=== PATIENT | male | born 1965 | race Caucasian/White ===

== ENCOUNTER 2018-02-12 13:43 | Emergency (ER) | payer BC ==
[2018-02-12 13:49] VITALS: BP 115/80; PULSE 100; TEMP 98.7; BMI 25.2
--- NOTE | 2018-02-12 14:13 | PDOC ---
Attending Attestation - HPI HPI: 02/12/18 15:04 The patient is a 52 year old male, with a significant PMH HLD, HTN, T2DM, who presents to the emergency department for evaluation of a syncopal fall that occurred today. The patient states he felt anxious and lightheaded at work when he fell down a flight of stairs. The patient does not recall passing out but remembers waking up after the fall and being able to ambulate. The patient complains of pain to the right side of his rib, neck tenderness with movement and mild right thumb pain. The patient denies chest pain, shortness of breath, headache and dizziness. Denies fever, chills, nausea, vomit, diarrhea and constipation. Denies dysuria, frequency, urgency and hematuria. Allergies: NKDA Past surgical history: Appendectomy Social history: None reported PCP: Cristian Mansfield - Physicial Exam PE: 02/12/18 15:04 GENERAL: Awake, alert, and fully oriented, in no acute distress HEAD: No signs of trauma EYES:+ 1 cm laceration to the left eyebrow. Sclera anicteric, conjunctiva clear ENT: Auricles normal inspection, hearing grossly normal, nares patent, oropharynx clear without exudates. Moist mucosa NECK: Normal ROM, supple, no lymphadenopathy, JVD, or masses LUNGS:+Mild tenderness with no ecchymosis to the right anterior chest wall. Breath sounds equal, clear to auscultation bilaterally. No wheezes, and no crackles HEART: Regular rate and rhythm, normal S1 and S2, no murmurs, rubs or gallops ABDOMEN:+RUQ tenderness to palpation. No guarding, no rebound. No masses EXTREMITIES: Normal range of motion, no edema. No clubbing or cyanosis. No cords, erythema, or tenderness NEUROLOGICAL: Cranial nerves II through XII grossly intact. Normal speech, normal gait SKIN: Warm, Dry, normal turgor, no rashes or lesions noted. <Nathan Carrington - Last Filed: 02/12/18 15:43> - Medical Decision Making 02/14/18 11:19 PT presents to the ED after fall down 11 stairs with R lower chest/upper abdomen pain and tenderness and laceration over eyebrow. Will check CT head to rule out intracranial injury. C spine cleared by nexus criteria. Given abdominal tenderness and mechanism of injury, will check CT chest abdomen pelvis to rule out internal injury. <Leticia Sarah - Last Filed: 02/14/18 11:20>
--- NOTE | 2018-02-12 14:35 | PDOC ---
History of Present Illness - General Chief Complaint: Injury Stated Complaint: LEFT EYE INJURY JOB Time Seen by Provider: 02/12/18 14:04 - History of Present Illness Initial Comments: The patient is a 52M w/ a PMH of HTN, T2DM, and HLD who presents s/p syncopal fall down 11 stairs. The patient reports that he was at work, standing at the top of a flight of stairs when he began to feel lightheaded. He reports that he does not remember falling and woke shortly after at the bottom of the stairs. He states that he was immediately able to ambulate. He states that he has a history of experiencing episodes of lightheadedness approximately every 9mo especially during times of anxiety. He endorses feeling anxious at work today just prior to his fall. He denies a history of falls or syncope in the past. On presentation the patient reports pain over his L eyebrow at the site of a laceration and small hematoma. He also reports an abrasion on the right thenar palm and R anterior mid-garcia. Otherwise he denies any complaints. Has been ambulating and drove himself to the ED. He denies blood thinner usage. He denies fever/chills, blurry vision, chest pain, SOB, weakness, or changes in sensation. 02/12/18 15:21 Past History - Past Medical History Allergies/Adverse Reactions: Allergies Allergy/AdvReac Type Severity Reaction Status Date / Time No Known Allergies Allergy Verified 02/12/18 13:49 Home Medications: Ambulatory Orders Atorvastatin Calcium 1 tab PO DAILY 02/12/18 Levothyroxine [Synthroid -] 1 tab PO DAILY 02/12/18 Lisinopril [Zestril] 1 tab PO DAILY 02/12/18 Pantoprazole Sodium [Protonix -] 1 tab PO Q2D 02/12/18 Sitagliptin Phos/Metformin HCl [Janumet 50-1,000 mg Tablet] 1 tab PO BID Diabetes: Yes HTN: Yes Hypercholesterolemia: Yes Thyroid Disease: Yes (hypothyroid) - Surgical History Appendectomy: Yes (lap appy) - Suicide/Smoking/Psychosocial Hx Smoking History: Never smoked Have you smoked in the past 12 months: Yes Cigars Per Day: 3 Information on smoking cessation initiated: No Hx Alcohol Use: No Drug/Substance Use Hx: No Review of Systems - Review of Systems Able to Perform ROS?: Yes Comments:: GENERAL/CONSTITUTIONAL: No fever or chills. No weakness HEAD, EYES, EARS, NOSE AND THROAT: No change in vision. No ear pain or discharge. No sore throat CARDIOVASCULAR: No chest pain or shortness of breath RESPIRATORY: No cough, wheezing, or hemoptysis GASTROINTESTINAL: No nausea, vomiting, diarrhea or constipation GENITOURINARY: No dysuria, frequency, or change in urination MUSCULOSKELETAL: per HPI SKIN: +R hand abrasion, +R garcia abrasion, +L eyebrow swelling and laceration NEUROLOGIC: +LOC; No current lightheadedness or dizziness; Pain at site of laceration/hematoma; No change in strength/sensation HEMATOLOGIC/LYMPHATIC: No anemia, easy bleeding, or history of blood clots. No blood thinners ALLERGIC/IMMUNOLOGIC: No hives or skin allergy 02/12/18 14:35 Is the patient limited Syriac proficient: No *Physical Exam - Vital Signs Last Vital Signs Temp Pulse Resp BP Pulse Ox 98.7 F 100 H 16 115/80 100 02/12/18 13:47 02/12/18 13:47 02/12/18 13:47 02/12/18 13:47 02/12/18 13:47 - Physical Exam Comments: GENERAL: Awake, alert, oriented x3, no acute distress SKIN: Warm and well perfused. Small superficial abrasion over R thenar eminence ; 1.5cm abrasion over R mid-garcia w/ no active bleeding; Linear 2cm laceration over L lateral eyebrow with surrounding hematoma w/o active bleeding HEAD: Linear 2cm laceration over L lateral eyebrow with surrounding hematoma w/ o active bleeding. Facial bones without deformities. No TTP other than over hematoma/laceration EYES: PERRL. No scleral icterus or conjunctival injection. Extraocular muscles intact. EARS: Normal appearing pinnae. NOSE: No discharge, tenderness. MOUTH: Moist mucus membranes without blood. Posterior pharynx without erythema or exudate. NECK: Trachea midline. No discolorations or edema. No mid-line c-spine TTP CV: Regular rate and rhythm, Normal s1 and s2. No murmurs appreciated PV: Radial pulses 2+ bilaterally and symmetric. Dorsalis pedis pulses 2+ bilaterally and symmetric. 2+ capillary refill. No extremity edema. CHEST: No abrasions or ecchymosis. Chest symmetric with respirations. No chest wall tenderness. No crepitus. No step offs. Lungs are clear to auscultation bilaterally. No rales, rhonchi, wheezing or stridor. ABDOMEN: Point TTP in RUQ just inferior to costal margin; No ecchymosis or abrasions. Soft, nondistended. Bowel tones normoactive. BACK: No abrasions, skin openings, or ecchymosis. Spine without bony tenderness , no step offs. PELVIC: Pelvis stable, nontender to lateral compression and palpation of symphysis pubis. MSK: Small superficial abrasion over R thenar eminence; 1.5cm abrasion over R mid-garcia w/ no active bleeding; Tolerates full range of motion of extremities without tenderness. NEURO: Alert and oriented to person, place, and time. GCS 15. CN II-XII intact. Sensation grossly intact. Strength 5/5 in bilateral UE and LE. 02/12/18 14:28 Procedures - Laceration/Wound Repair Left Face Wound Length: to 2.5 cm Wound Explored: clean Wound's Depth, Shape: superficial Irrigated w/ Saline: Yes Anesthesia: 2% Lidocaine Wound Debrided: minimal Wound Repaired With: Sutures Suture Size/Type: 5:0, nylon Number of Sutures: 7 Layer Closure: No Progress: Indication: Laceration to L eyebrow Procedure: Laceration Repair Performed by: Teja White MD Supervising Physician: Dr. Leticia Sarah Consent: Risks, benefits and alternatives were discussed and verbal consent obtained Laceration length: 3 cm Foreign bodies: no foreign bodies Anesthesia: local infiltration w/ Lidocaine 2% w/o epi Preparation: Patient was prepped and draped in the usual sterile fashion. Irrigation solution: saline Irrigation method: jet lavage and syringe Debridement: none Degree of undermining: none Skin closure: 4-0 Nylon Number of sutures: 7 Technique: simple Approximation: close Dressing: Xeroform and 2x2 gauze Patient tolerance: Patient tolerated the procedure well with no immediate complications 02/12/18 17:49 ED Treatment Course - LABORATORY CBC & Chemistry Diagram: 02/12/18 14:21 02/12/18 14:21 - RADIOLOGY Radiology Studies Ordered: Category Date Time Status ABDOMEN & PELVIS CT WITH CONTR [CT] Stat CT Scan 02/12/18 14:23 Ordered ABDOMEN & PELVIS CT WITH CONTR [CT] Stat CT Scan 02/12/18 14:[address] WITH CONTRAST [CT] Stat CT Scan 02/12/18 14:[address] WITHOUT CONTRAST [CT] Stat CT Scan 02/12/18 14:15 Ordered CHEST X-RAY PORTABLE* [RAD] Stat Radiology 02/12/18 14:15 Ordered Medical Decision Making - Medical Decision Making The patient is a 52M w/ a PMH of HTN, T2DM, and HLD who presents s/p syncopal fall down 11 stairs. The patient reports that he was at work, standing at the top of a flight of stairs when he began to feel lightheaded. Ddx: Vasovagal, possible ACS, not likely but considered infection, electrolyte abnormality; patient not hypoglycemic ED Course CMP, CBC, Trop I, TS, PT/PTT/INR ECG CXR, CT Head w/o, CT CAP w/ contrast ECG with rate of 98, regular rhythm, no ST segment changes, boarderline QTc at 444. No previous study to compare. Initial Trop neg Lytes wnl No leukocytosis No Transaminitis 02/12/18 15:26 CT Head w/o evidence of acute bleed or fracture. Scan significant for prominent retrocerebellar CSF. Patient is without focal neurological deficit, ambulating w /o difficulty, no ataxia Laceration to L eyebrow, refer to the Procedure Note for full details. R mid-garcia abrasion cleaned and dressed with xeroform & 2x2 gauze. Reviewed wound care instructions with patient who verbalized understanding 02/12/18 17:55 Contacted [facility] for CT CAP read. Image was sent at 1641, however they state that they just now received the study. 02/12/18 18:15 CT CAP w/o acute rasta, intrathoracic, or intraabdominal pathology. 1.1cm renal calculus noted, non-obstructing. Dispo: Home w/ PCP f/u. 02/12/18 19:24 *DC/Admit/Observation/Transfer Diagnosis at time of Disposition: Syncope Qualifiers: Syncope type: unspecified Qualified Code(s): R55 - Syncope and collapse Fall down stairs Qualifiers: Encounter type: initial encounter Qualified Code(s): W10.8XXA - Fall (on) (from ) other stairs and steps, initial encounter - Discharge Dispostion Disposition: HOME Condition at time of disposition: Stable Decision to Admit order: No - Referrals Referrals: Cristian Mansfield MD [Primary Care Provider] - - Patient Instructions Printed Discharge Instructions: DI for Syncope in Adults (Fainting), DI for Laceration Repair -- Simple Additional Instructions: You were seen today in the Emergency Room for evaluation of syncope and fall down 11 stairs. You were evaluated and found to not have any acute fracture. You were also provided with copies of your imaging study reports. Please take these with you to your next primary care appointment. For your laceration, wash the area with soap and water every day. You may dress the wound with Bacitracin/Neosporin. For pain, recommend Tylenol and Ibuprofen as directed. Follow up with your primary care provider within the next 1-3 days You will need to have the sutures removed in 5-7 days Return to the Emergency Room if you develop fevers, nausea/vomiting, worsening abdominal pain, worsening symptoms, or any new concerning symptoms. Also return if you have worsening pain, redness, or drainage from your laceration. - Post Discharge Activity
[2018-02-12 14:46] LABS: HEMOGLOBIN 15.8 GM/dL (11.7-16.9); MCH 32.1 pg (25.7-33.7); MCHC 34.3 g/dl (32.0-35.9); MEAN CELL VOLUME 93.5 fl (80-96); MEAN PLT VOLUME 8.7 fl (7.5-11.1); PLATELET COUNT 255 K/MM3 (134-434); RBC 4.91 M/mm3 (4.00-5.60); RDW 12.9 % (11.9-15.9); WHITE BLOOD COUNT 11.2 K/mm3 (4.0-10.0)
[2018-02-12 15:11] LABS: ALBUMIN 3.9 g/dl (3.4-5.0); ANION GAP 10 MMOL/L (8-16); BILIRUBIN,TOTAL 0.7 mg/dL (0.2-1.0); BLOOD UREA NITROGEN 15 mg/dL (7-18); CALCIUM 8.9 mg/dL (8.5-10.1); CHLORIDE 111 mmol/L (98-107); CO2 24 mmol/L (21-32); CREATININE 0.9 mg/dL (0.7-1.3); GLUCOSE,RANDOM 156 mg/dL (74-106); SGOT/AST 55 U/L (15-37); SGPT/ALT 50 U/L (12-78); SODIUM 145 mmol/L (136-145); TOT PROT 7.2 g/dl (6.4-8.2)
[2018-02-12 15:12] LABS: ALK PHOS 55 U/L (45-117)
[2018-02-12] MEDS ORDERED: LIDOCAINE HCL 2% (50ML VIAL) SQ ONE (15:43)
[2018-02-12 16:19] LABS: INR 1.05 (0.83-1.09); PROTHROMBIN TIME (PATIENT) 11.9 SEC (9.7-13.0)
[2018-02-12 16:22] LABS: ACTIVATED PTT 28.7 SECONDS (25.2-36.5)
--- NOTE | 2018-02-12 19:11 | PDOC ---
*Physical Exam - Vital Signs Last Vital Signs Temp Pulse Resp BP Pulse Ox 98.7 F 100 H 16 115/80 100 02/12/18 13:47 02/12/18 13:47 02/12/18 13:47 02/12/18 13:47 02/12/18 13:47 ED Treatment Course - LABORATORY CBC & Chemistry Diagram: 02/12/18 14:21 02/12/18 14:21 - ADDITIONAL ORDERS Additional order review: Laboratory Results 02/12/18 02/12/18 02/12/18 16:00 16:00 14:21 PT with INR 11.90 INR 1.05 PTT (Actin FS) 28.7 Sodium Potassium Chloride Carbon Dioxide Anion Gap BUN Creatinine Creat Clearance w eGFR Random Glucose Calcium Total Bilirubin AST ALT Alkaline Phosphatase Troponin I < 0.02 Total Protein Albumin Blood Type O POSITIVE Antibody Screen Negative 02/12/18 14:21 PT with INR INR PTT (Actin FS) Sodium 145 Potassium 4.0 Chloride 111 H Carbon Dioxide 24 Anion Gap 10 BUN 15 Creatinine 0.9 Creat Clearance w eGFR > 60 Random Glucose 156 H Calcium 8.9 Total Bilirubin 0.7 AST 55 H ALT 50 Alkaline Phosphatase 55 Troponin I Total Protein 7.2 Albumin 3.9 Blood Type Antibody Screen 02/12/18 14:21 RBC 4.91 MCV 93.5 MCHC 34.3 RDW 12.9 MPV 8.7 - Medications Given in the ED: ED Medications Discontinued Medications Generic Name Dose Route Start Last Admin Trade Name Freq PRN Reason Stop Dose Admin Lidocaine HCl 10 mg 02/12/18 15:43 02/12/18 17:50 Xylocaine 2% SQ 02/12/18 15:44 10 mg ONCE ONE Administration Medical Decision Making - Medical Decision Making 02/12/18 19:10 Pt signed out to me by Dr. White Awaiting CT scan results 02/12/18 19:[address] Dr[address] White received ct results and d/cd the pt *DC/Admit/Observation/Transfer Diagnosis at time of Disposition: Syncope Qualifiers: Syncope type: unspecified Qualified Code(s): R55 - Syncope and collapse Fall down stairs Qualifiers: Encounter type: initial encounter Qualified Code(s): W10.8XXA - Fall (on) (from ) other stairs and steps, initial encounter - Discharge Dispostion Disposition: HOME Condition at time of disposition: Stable - Referrals Referrals: Cristian Mansfield MD [Primary Care Provider] - - Patient Instructions Printed Discharge Instructions: DI for Syncope in Adults (Fainting), DI for Laceration Repair -- Simple Additional Instructions: You were seen today in the Emergency Room for evaluation of syncope and fall down 11 stairs. You were evaluated and found to not have any acute fracture. You were also provided with copies of your imaging study reports. Please take these with you to your next primary care appointment. For your laceration, wash the area with soap and water every day. You may dress the wound with Bacitracin/Neosporin. For pain, recommend Tylenol and Ibuprofen as directed. Follow up with your primary care provider within the next 1-3 days You will need to have the sutures removed in 5-7 days Return to the Emergency Room if you develop fevers, nausea/vomiting, worsening abdominal pain, worsening symptoms, or any new concerning symptoms. Also return if you have worsening pain, redness, or drainage from your laceration. - Post Discharge Activity
--- NOTE | 2018-02-12 21:52 | EKG ---
Test Reason : Blood Pressure : / mmHG Vent. Rate : 098 BPM Atrial Rate : 098 BPM P-R Int : 138 ms QRS Dur : 068 ms QT Int : 348 ms P-R-T Axes : 073 034 041 degrees QTc Int : 444 ms POOR DATA QUALITY, INTERPRETATION MAY BE ADVERSELY AFFECTED NORMAL SINUS RHYTHM NORMAL ECG WHEN COMPARED WITH ECG OF 04-SEP-2006 19:17, NO SIGNIFICANT CHANGE WAS FOUND Confirmed by SANTANA PEÑA, NICK ([id number]) on 02/12/2018 9:52:14 PM Referred By: Confirmed By:NICK DILLON MD
== END 2018-02-12 19:35 | disposition home or self-care (01) ==
LOC: JER 13:43 → JERFT 13:43 → JER 19:35
PROC: 0HQ1XZZ Repair Face Skin, External Approach (ICD-10-PCS; principal; 2018-02-12)
DX: S09.8XXA Other specified injuries of head, initial encounter (principal); R55 Syncope and collapse; S01.112A Laceration without foreign body of left eyelid and periocular area, initial encounter; S00.12XA Contusion of left eyelid and periocular area, initial encounter; S60.511A Abrasion of right hand, initial encounter; S80.811A Abrasion, right lower leg, initial encounter; W10.8XXA Fall (on) (from) other stairs and steps, initial encounter; Y93.89 Activity, other specified; Y92.69 Other specified industrial and construction area as the place of occurrence of the external cause; Y99.0 Civilian activity done for income or pay; I10 Essential (primary) hypertension; E11.9 Type 2 diabetes mellitus without complications; Z79.84 Long term (current) use of oral hypoglycemic drugs; E78.00 Pure hypercholesterolemia, unspecified; E03.9 Hypothyroidism, unspecified
CPT/HCPCS: 36415; 70450-TC; 71045-TC-FY; 71260-TC; 74177-TC; 80053; 84484; 85027; 85610; 85730; 86850; 86900; 86901; 93005; 93010; 99282-25

== ENCOUNTER 2018-02-28 14:27 | Emergency (ER) | payer BC ==
--- NOTE | 2018-02-28 15:05 | PDOC ---
Rapid Medical Evaluation Time Seen by Provider: 02/28/18 15:02 Medical Evaluation: Allergies Allergy/AdvReac Type Severity Reaction Status Date / Time No Known Allergies Allergy Verified 02/12/18 13:49 02/28/18 15:04 Pt presents to the ED for suture removal to the L eyebrow after falling two weeks ago. States 5 of the stitches came out on their own Exam: Sutures present to the L eyebrow Orders: nothing Pt to proceed to the ED for further evaluation Discharge Disposition - Diagnosis Visit for suture removal - Referrals - Patient Instructions - Post Discharge Activity
[2018-02-28 15:07] VITALS: BP 119/82; PULSE 102; TEMP 98.8; BMI 25.3
--- NOTE | 2018-02-28 15:48 | PDOC ---
Suture Removal/Wound Check HPI - History of Present Illness Chief Complaint: Suture/Staple Removal(Here) Stated Complaint: STITCHES REMOVAL Time Seen by Provider: 02/28/18 15:02 History Source: Yes: Patient Exam Limitations: Yes: No Limitations Date of Last ED visit: 02/14/18 - Previous ED Treatment Type of procedure performed on last visit: Yes: Laceration Repair Tetanus Immunization: Yes: Up to Date Antibiotics Prescribed: Yes - Onset of Previous Treatment Select one - (for the option above): Weeks (2 weeks) Comment:: 02/28/18 15:49 Patient present for suture removal status post fall 2 weeks ago lacerating left eyebrow requiring suture placement. Patient reported some of the sutures came out and only have 5 sutures out of 7 sutures on. Denies blurry vision, change in vision or redness to wound site Past History - Past Medical History Allergies/Adverse Reactions: Allergies Allergy/AdvReac Type Severity Reaction Status Date / Time No Known Allergies Allergy Verified 02/28/18 15:04 Home Medications: Ambulatory Orders Atorvastatin Calcium 1 tab PO DAILY 02/12/18 Levothyroxine [Synthroid -] 1 tab PO DAILY 02/12/18 Lisinopril [Zestril] 1 tab PO DAILY 02/12/18 Pantoprazole Sodium [Protonix -] 1 tab PO Q2D 02/12/18 Sitagliptin Phos/Metformin HCl [Janumet 50-1,000 mg Tablet] 1 tab PO BID COPD: No Diabetes: Yes HTN: Yes Hypercholesterolemia: Yes Thyroid Disease: Yes (hypothyroid) - Surgical History Appendectomy: Yes (lap appy) - Suicide/Smoking/Psychosocial Hx Smoking History: Never smoked Have you smoked in the past 12 months: Yes Cigars Per Day: 3 Information on smoking cessation initiated: No Hx Alcohol Use: No Drug/Substance Use Hx: No Suture Removal/Wound Check PE - Physical Exam Laceration/Wound Check Symptoms: reports: None Current Severity Level: None Maximum Severity Level: None Location of Laceration/Wound: left: Eye (eyebrow) Pain Radiation: None *Review of Systems - Review of Systems Able to Perform ROS?: Yes HEENTM: No: Eye Pain, Blurred Vision, Tearing, Recent change in vision, Double Vision Respiratory: No: Symptoms reported Cardiac (ROS): No: Symptoms Reported ABD/GI: No: Symptoms Reported Integumentary: Yes: See HPI Neurological: No: Headache, Unsteady Gait, Dizziness All Other Systems: Reviewed and Negative *Physical Exam - Vital Signs Last Vital Signs Temp Pulse Resp BP Pulse Ox 98.8 F 102 H 19 119/82 98 02/28/18 15:04 02/28/18 15:04 02/28/18 15:04 02/28/18 15:04 02/28/18 15:04 - Physical Exam Comments: 02/28/18 15:50 GENERAL: Well developed, well nourished. Awake and alert. No acute distress. HEENT: Well healed 3 cm linear laceration to left eyebrow. Normocephalic, atraumatic. PERRLA, EOMI. No conjunctival pallor. Sclera are non- icteric. Moist mucous membranes. Oropharynx is clear. NECK: Supple. Full ROM. CARDIOVASCULAR: Regular rate and rhythm. No murmurs, rubs, or gallops. PULMONARY: No evidence of respiratory distress. SKIN: Well healed 3 cm linear laceration to left eyebrow. No erythema to wound site. No wound dehiscence or evidence of wound infection to left eyebrow. Warm and dry. NEUROLOGICAL: Alert, awake, appropriate. PSYCHIATRIC: Cooperative. Good eye contact. Appropriate mood and affect. General Appearance: Yes: Nourished, Appropriately Dressed. No: Apparent Distress Medical Decision Making - Medical Decision Making 02/28/18 15:52 Patient presented for suture removal status post fall 2 weeks ago lacerating left eyebrow. Denies any symptoms of dizziness, headache, blurry vision or change in vision. Exam shows well-healing 3 sentiment a laceration with [address] Suture removed with suture removal without complication. Patient advised on home wound care and stable for home discharge *DC/Admit/Observation/Transfer Diagnosis at time of Disposition: Visit for suture removal Laceration of left eyebrow Qualifiers: Encounter type: subsequent encounter Qualified Code(s): S01.112D - Laceration without foreign body of left eyelid and periocular area, subsequent encounter - Discharge Dispostion Disposition: HOME Condition at time of disposition: Stable Decision to Admit order: No - Referrals - Patient Instructions Printed Discharge Instructions: How to Care for a Surgical Wound - Post Discharge Activity
== END 2018-02-28 15:50 | disposition home or self-care (01) ==
LOC: JERFT 14:27
DX: Z48.817 Encounter for surgical aftercare following surgery on the skin and subcutaneous tissue (principal); Z48.02 Encounter for removal of sutures
CPT/HCPCS: 99281-25

== ENCOUNTER 2019-08-23 10:27 | Emergency (ER) | payer BC, OTHER ==
[2019-08-23 10:36] VITALS: BP 120/90; PULSE 94; TEMP 98; BMI 26.8
--- NOTE | 2019-08-23 10:55 | PDOC ---
History of Present Illness - General Chief Complaint: Cold Symptoms Stated Complaint: FEVER Time Seen by Provider: 08/23/19 10:37 History Source: Patient Exam Limitations: No Limitations - History of Present Illness Initial Comments: 08/23/19 10:55 Patient is here for reevaluation of persistent fevers, body aches general malaise. was seen yesterday at a clinic where multiple labs were performed including an influenza testing which was negative. had a few tubes of blood and urine were not available until today. He did not follow back up with that clinic. His private physician is in [place] and is unaware of patient's illness this past week has been using Tylenol Motrin for fever and pain relief, has been performing conservative measures for treatment relief Is this a multiple visit Asthma Patient?: No Timing/Duration: reports: getting worse Severity: reports: mild, moderate Associated Symptoms: reports: fever/chills, muscle aches. denies: cough, sore throat, wheezing Past History - Travel Traveled outside of the country in the last 30 days: No Close contact w/someone who was outside of country & ill: No - Past Medical History Allergies/Adverse Reactions: Allergies Allergy/AdvReac Type Severity Reaction Status Date / Time No Known Allergies Allergy Verified 02/28/18 15:04 Home Medications: Ambulatory Orders Atorvastatin Calcium 1 tab PO DAILY 02/12/18 Levothyroxine [Synthroid -] 1 tab PO DAILY 02/12/18 Lisinopril [Zestril] 1 tab PO DAILY 02/12/18 Pantoprazole Sodium [Protonix -] 1 tab PO Q2D 02/12/18 Sitagliptin Phos/Metformin HCl [Janumet 50-1,000 mg Tablet] 1 tab PO BID 02/12/18 COPD: No Diabetes: Yes HTN: Yes Hypercholesterolemia: Yes Thyroid Disease: Yes (hypothyroid) - Surgical History Appendectomy: Yes (lap appy) - Immunization History Immunization Up to Date: No - Psycho Social/Smoking Cessation Hx Smoking History: Never smoked Have you smoked in the past 12 months: No Cigars Per Day: 3 Information on smoking cessation initiated: No Hx Alcohol Use: No Drug/Substance Use Hx: No Review of Systems - Review of Systems Able to Perform ROS?: Yes Is the patient limited Icelandic proficient: Yes Constitutional: Yes: Symptoms Reported, See HPI, Chills, Fever, Malaise HEENTM: Yes: See HPI. No: Symptoms Reported, Tearing, Nose Congestion Respiratory: Yes: See HPI. No: Symptoms reported, Cough Cardiac (ROS): Yes: See HPI. No: Symptoms Reported All Other Systems: Reviewed and Negative *Physical Exam - Vital Signs Last Vital Signs Temp Pulse Resp BP Pulse Ox 98.0 F 94 H 18 120/90 97 08/23/19 10:34 08/23/19 10:34 08/23/19 10:34 08/23/19 10:34 08/23/19 10:34 - Physical Exam General Appearance: Yes: Nourished, Appropriately Dressed, Mild Distress. No: Apparent Distress HEENT: positive: EVE, Normal ENT Inspection (Mild erythema with mildly swollen uvula), TMs Normal (Congested but landmarks easily visualized), Nasal Congestion, Rhinorrhea (Clear drainage) Neck: positive: Supple. negative: Lymphadenopathy (R), Lymphadenopathy (L) Respiratory/Chest: positive: Lungs Clear. negative: Decreased Breath Sounds, Rhonchi, Wheezing Cardiovascular: positive: Regular Rhythm Gastrointestinal/Abdominal: positive: Normal Bowel Sounds, Soft. 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 Discussed possibility of being influenza with false negativity however being outside window for Tamiflu treatment patient understands need to use conservative measures. We will follow-up with clinic where other testing had been performed and report back to private physician on [place] before weekend Discharge - Discharge Information Problems reviewed: Yes Clinical Impression/Diagnosis: Viral respiratory illness Condition: Stable Disposition: HOME - Admission No - Follow up/Referral - Patient Discharge Instructions Patient Printed Discharge Instructions: DI for Viral Upper Respiratory Infection -- Adult Additional Instructions: Rest, avoid strenuous activity until symptoms resolve Lots of fluids: Teas, soups, water, Gatorade, Pedialyte Salt water gargles, steamy showers, grandmas old-fashioned treatments to help with symptoms May use [id number] medications for symptom resolution: NyQuil/DayQuil/TheraFlu/etc. Ibuprofen/Tylenol for fevers and pain relief You will be notified by follow-up to help organize a appointment with [facility] group for a reevaluation Follow-up with PMD as needed, no need for office visit if symptoms are resolving Return to emergency department for worsened fevers, pain, breathing problems - Post Discharge Activity Work/Back to School Note: Back to Work
== END 2019-08-23 11:24 | disposition home or self-care (01) ==
LOC: JERFT 10:27
DX: J06.9 Acute upper respiratory infection, unspecified (principal); B97.89 Other viral agents as the cause of diseases classified elsewhere
CPT/HCPCS: 99281-25